=== PATIENT | male | born 1965 | race Hispanic/Latino ===

== ENCOUNTER 2019-05-13 11:07 | Emergency (ER) | payer BC, OTHER ==
[2019-05-13] MEDS ORDERED: TETANUS/DIPHTHERIA TOXOID [ADULT] 0.5 ML VIAL IM ONE (11:21)
== END 2019-05-13 11:39 | disposition home or self-care (01) ==
LOC: EDH 11:07
DX: S61.431A Puncture wound without foreign body of right hand, initial encounter (principal); I10 Essential (primary) hypertension; W26.8XXA Contact with other sharp object(s), not elsewhere classified, initial encounter; Y93.89 Activity, other specified; Y92.89 Other specified places as the place of occurrence of the external cause; Y99.8 Other external cause status
CPT/HCPCS: 90471; 90714

== ENCOUNTER 2019-11-03 19:30 | Emergency (ER) | payer BC ==
[2019-11-03] MEDS ORDERED: LIDOCAINE 1%-EPI 1:100,000 20 ML VIAL IJ ONE (20:37)
== END 2019-11-03 21:22 | disposition home or self-care (01) ==
LOC: EDH 19:30
DX: S81.812A Laceration without foreign body, left lower leg, initial encounter (principal); I10 Essential (primary) hypertension; Z79.899 Other long term (current) drug therapy; W45.8XXA Other foreign body or object entering through skin, initial encounter; Y93.89 Activity, other specified; Y92.89 Other specified places as the place of occurrence of the external cause; Y99.8 Other external cause status
CPT/HCPCS: 12002; 73590; 99283; J3490

== ENCOUNTER → 2024-11-08 | Outpatient (CLI) | payer OTHER ==
--- NOTE | 2024-11-08 12:07 | HMCIMG ---
CT HEART SAVER PROMOTIONAL HISTORY: Cardiac calcification scoring. FINDINGS: The cardiac calcification scoring is 2.5. Limited examination of the heart was performed. The study is done for additional or incidental findings. RCA = 2.5. IMPRESSION: No additional findings.
== END | disposition home or self-care (01) ==
LOC: RAH 09:31
PROVIDERS: ATTEND Internal Medicine
DX: Z13.6 Encounter for screening for cardiovascular disorders (principal); R93.1 Abnormal findings on diagnostic imaging of heart and coronary circulation
CPT/HCPCS: 75571